=== PATIENT | female | born 1960 | race Two or more races ===

== ENCOUNTER → 2024-06-12 | Emergency (ER) | payer OTHER ==
[~2024-06-12] VITALS: Ht 157.5 cm; Wt 78.5 kg
[~2024-06-12] MED LIST: ACETAMINOPHEN 500 MG GEL..CAP PO ONE; ECOTRIN81 MG PO
== END | disposition left against medical advice (07) ==
LOC: ER 15:10
DX: Z53.21 Procedure and treatment not carried out due to patient leaving prior to being seen by health care provider (principal)